=== PATIENT | female | born 1970 | race Two or more races ===

== ENCOUNTER 2024-05-11 09:38 | Outpatient (CLI) | payer OTHER ==
[~2024-05-11 09:38] MED LIST: CATAFLAM50 MG PO; CIPRO500 MG PO
== END 2024-05-11 09:40 | disposition home or self-care (01) ==
LOC: NUCLEAR 09:38
PROVIDERS: ATTEND Internal Medicine
DX: E21.0 Primary hyperparathyroidism (principal)